=== PATIENT | male | born 2000 | race Caucasian/White ===

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

== ENCOUNTER 2018-10-31 23:05 | Emergency (ER) | payer OTHER ==
[2018-10-31] MEDS ORDERED: ACETAMINOPHEN TAB 500 MG TAB PO STA (23:44)
[2018-10-31] MEDS ORDERED: IBUPROFEN 600 MG TAB PO STA (23:44)
--- NOTE | 2018-11-01 00:23 | XR ---
EXAM: XR Right Hand Complete, 3 or More Views CLINICAL HISTORY: ITS.REASON XR Reason: Pain TECHNIQUE: Frontal, lateral and oblique views of the right hand. COMPARISON: No relevant prior studies available. FINDINGS: Bones/joints: Unremarkable. No acute fracture. No dislocation. Soft tissues: There is mild soft tissue swelling along the medial hand. No radiopaque foreign body. IMPRESSION: No evidence of acute fracture.
--- NOTE | 2018-11-01 00:24 | XR ---
EXAM: XR Right Shoulder Complete, 2 or More Views CLINICAL HISTORY: ITS.REASON XR Reason: Pain TECHNIQUE: Two or more views of the right shoulder. COMPARISON: No relevant prior studies available. FINDINGS: Bones/joints: Unremarkable. No acute fracture. No dislocation. Soft tissues: Unremarkable. IMPRESSION: Normal right shoulder x-rays.
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
[2018-11-01 01:15] VITALS: BP 142/93; PULSE 96; RESP 16; TEMP 98.5
== END 2018-11-01 01:16 | disposition home or self-care (01) ==
LOC: EC 23:05
DX: S46.911A Strain of unspecified muscle, fascia and tendon at shoulder and upper arm level, right arm, initial encounter (principal); S60.221A Contusion of right hand, initial encounter; J45.909 Unspecified asthma, uncomplicated; Z87.891 Personal history of nicotine dependence; Y04.0XXA Assault by unarmed brawl or fight, initial encounter; W22.8XXA Striking against or struck by other objects, initial encounter; Y93.89 Activity, other specified
CPT/HCPCS: 99283